=== PATIENT | female | born 1995 | race Caucasian/White ===

== ENCOUNTER → 2016-12-02 | Outpatient (CLI) | payer OTHER ==
[~2016-12-02] MED LIST: AMOXICILLIN500 M2 PO; AMOXICILLIN500 MG PO; ANAPROX DS550 MG PO; ANTIVERT/2525 MG PO; ATIVAN0.5 MG PO; ATIVAN1 MG PO; BACTRIM DS 8001 TA1 PO; BENADRYL ALLERG25 M5 PO; CIPRO250 MG PO; FIORICET 325 MG1 TAB PO; IBU-6600 MG PO; K-Dur 20MEQ20 MEQ PO; KEFLEX500 MG PO; LEVOFLOXACIN500 MG PO; LIDEX 0.05% CRE15 GM T; LOMOTIL 0.025 M1 TA1 PO; LOTRIMIN 1%15 GM PO; MACROBID100 M1 PO; MAXALT10 MG PO; MOTRIN400 MG; MOTRIN800 MG PO; NAPROSYN500 MG PO; PEPCID20 MG PO; TORADOL10 MG PO; VISTARIL25 M2 PO; ZOFRAN ODT4 MG SL; ZOFRAN4 MG PO; ZYRTEC ALLERGY10 MG PO; ZYRTEC10 MG; ZYRTEC10 MG PO
== END | disposition home or self-care (01) ==
LOC: LAB 18:40
DX: E01.0 Iodine-deficiency related diffuse (endemic) goiter (principal)

== ENCOUNTER → 2016-12-23 | Outpatient (CLI) | payer OTHER ==
[2016-12-23 20:53] LABS: FREE T4 1.05 ng/dl (0.76-1.46)
[2016-12-25 07:07] LABS: THYROID PEROXIDASE (TPO) AB 38 IU/mL (0-34)
== END | disposition home or self-care (01) ==
LOC: LAB 18:56
PROVIDERS: Nurse Practitioner
DX: E01.0 Iodine-deficiency related diffuse (endemic) goiter (principal)

== ENCOUNTER → 2016-12-30 | Outpatient (CLI) | payer OTHER | END | disposition home or self-care (01) | LOC: US 18:00 | DX: E04.2 Nontoxic multinodular goiter (principal); E01.0 Iodine-deficiency related diffuse (endemic) goiter; R59.0 Localized enlarged lymph nodes ==

== ENCOUNTER 2017-03-19 08:21 | Emergency (ER) | payer OTHER ==
[~2017-03-19] VITALS: Ht 157.4 cm; Wt 70.3 kg
[2017-03-19 08:59] LABS: BILIRUBIN NEGATIVE (NEGATIVE); BLOOD 3+ (NEGATIVE); CLARITY CLOUDY (CLEAR); COLOR YELLOW (YELLOW); GLUCOSE NEGATIVE (NEGATIVE); KETONE NEGATIVE (NEGATIVE); LEUKO ESTERASE 1+ (NEGATIVE); NITRITE NEGATIVE (NEGATIVE); PH 5.5 (5.0-9.0); PROTEIN TRACE (NEGATIVE); SPECIFIC GRAVITY >= 1.030 (1.005-1.030); UROBILINOGEN 0.2 E.U./dl (0.2-1.0)
[2017-03-19 09:05] LABS: BACTERIA 2+
[2017-03-19 09:06] LABS: URINE REFLEX COMMENT YES (NO)
[2017-03-19 09:21] LABS: BASO % 0.3 % (0.0-1.0); EOS % 0.1 % (1.0-4.0); HEMATOCRIT 36.6 % (37.0-47.0); HEMOGLOBIN 12.9 g/dl (12.0-16.0); IG # 0.1 10*3/uL (0.0-0.1); LYMPH # 1.1 10*3/uL (1.3-4.4); LYMPH % 7.3 % (27.0-41.0); MEAN CELL VOLUME 94.1 fl (81.0-99.0); MEAN CORPUSCULAR HGB 33.2 pg (27.0-31.0); MEAN CORPUSCULAR HGB CONC 35.2 g/dl (33.0-37.0); MEAN PLATELET VOLUME 10.4 fl (9.6-12.3); MONO % 6.3 % (3.0-9.0); NEUT # 13.1 10*3/uL (2.3-7.9); NEUT % 85.6 % (47.0-73.0); PLATELET COUNT AUTOMATED 241 10*3/uL (130-400); RED BLOOD COUNT 3.89 10*6/uL (4.10-5.10); RED CELL DISTRI WIDTH 11.9 % (0-14.5); WHITE BLOOD COUNT 15.3 10*3/uL (4.8-10.8)
[2017-03-19 09:42] LABS: ALBUMIN 3.8 gm/dl (3.1-4.5); ALKALINE PHOSPHATASE 89 U/L (45-117); BILIRUBIN, TOTAL 0.5 mg/dl (0.2-1.0); BUN 10 mg/dl (7-24); CARBON DIOXIDE 25 mmol/L (21-32); CHLORIDE 104 mmol/L (98-107); EST GLOM FILT AFRICAN AMERICAN > 60 ml/min; GLUCOSE 108 mg/dL (65-99); POTASSIUM 3.6 mmol/L (3.5-5.1); SGOT/AST 13 IU/L (3-35); SGPT/ALT 21 U/L (12-78); SODIUM 137 mmol/L (136-145); TOTAL PROTEIN 7.6 gm/dL (6.4-8.2)
[2017-03-19] MEDS ORDERED: OMNICEF300 MG PO (11:25)
== END 2017-03-19 11:57 | disposition home or self-care (01) ==
LOC: ED 08:21
PROVIDERS: Emergency Medicine; Nurse Practitioner Family
DX: N39.0 Urinary tract infection, site not specified (principal); J01.90 Acute sinusitis, unspecified; Z88.1 Allergy status to other antibiotic agents; Z88.2 Allergy status to sulfonamides; Z91.018 Allergy to other foods; Z91.040 Latex allergy status

== ENCOUNTER → 2017-04-07 | Outpatient (CLI) | payer OTHER ==
[~2017-04-07] MED LIST changes: +OMNICEF300 MG PO
== END | disposition home or self-care (01) ==
LOC: LAB 15:05
DX: E01.0 Iodine-deficiency related diffuse (endemic) goiter (principal)

== ENCOUNTER → 2017-04-18 | Outpatient (CLI) | payer OTHER | END | disposition home or self-care (01) | LOC: SDC 12:00 → EDSTATUS 12:30 | DX: E04.2 Nontoxic multinodular goiter (principal) ==

== ENCOUNTER 2019-09-15 00:38 | Emergency (ER) | payer OTHER ==
[~2019-09-15] VITALS: Ht 154.9 cm; Wt 68.0 kg
[2019-09-15 01:40] LABS: BILIRUBIN NEGATIVE (NEGATIVE); BLOOD 2+ (NEGATIVE); CLARITY SL CLOUDY (CLEAR); COLOR YELLOW (YELLOW); GLUCOSE NEGATIVE (NEGATIVE); KETONE NEGATIVE (NEGATIVE); LEUKO ESTERASE TRACE (NEGATIVE); NITRITE NEGATIVE (NEGATIVE); SPECIFIC GRAVITY 1.025 (1.005-1.030); UROBILINOGEN 0.2 E.U./dl (0.2-1.0)
[2019-09-15 01:41] LABS: BACTERIA TRACE; EPITHELIAL CELLS 15-20
[2019-09-15] MEDS ORDERED: PYRIDIUM100 MG PO (01:45)
[2019-09-15] MEDS ORDERED: CEPHALEXIN500 M1 PO (01:45)
== END 2019-09-15 02:00 | disposition home or self-care (01) ==
LOC: ED 00:38
PROVIDERS: Nurse Practitioner Family
DX: N39.0 Urinary tract infection, site not specified (principal); G43.909 Migraine, unspecified, not intractable, without status migrainosus; Z88.2 Allergy status to sulfonamides; Z91.048 Other nonmedicinal substance allergy status; Z91.040 Latex allergy status; Z88.1 Allergy status to other antibiotic agents; Z88.8 Allergy status to other drugs, medicaments and biological substances; Z79.2 Long term (current) use of antibiotics; Z79.899 Other long term (current) drug therapy

== ENCOUNTER 2019-11-27 14:01 | Emergency (ER) | payer OTHER ==
[~2019-11-27] VITALS: Ht 154.9 cm; Wt 68.0 kg
[~2019-11-27 14:01] MED LIST changes: +CEPHALEXIN500 M1 PO; +PYRIDIUM100 MG PO
[2019-11-27] MEDS ORDERED: DIFLUCAN150 MG PO (15:07)
[2019-11-27] MEDS ORDERED: AMOXICILLIN500 M2 PO (15:07)
== END 2019-11-27 15:14 | disposition home or self-care (01) ==
LOC: ED 14:01
DX: J02.9 Acute pharyngitis, unspecified (principal); J40 Bronchitis, not specified as acute or chronic; F17.200 Nicotine dependence, unspecified, uncomplicated; Z79.899 Other long term (current) drug therapy; Z88.8 Allergy status to other drugs, medicaments and biological substances; Z88.2 Allergy status to sulfonamides

== ENCOUNTER 2020-07-29 22:59 | Emergency (ER) | payer OTHER ==
[~2020-07-29 22:59] MED LIST changes: +DIFLUCAN150 MG PO
[2020-07-29] MEDS ORDERED: DOXYLAMINE-PYR1 EACH PO (23:06)
[2020-07-29 23:24] LABS: BASO % 0.3 % (0.0-1.0); EOS # 0.1 10*3/uL (0.0-0.4); EOS % 0.8 % (1.0-4.0); HEMATOCRIT 34.4 % (37.0-47.0); LYMPH # 2.5 10*3/uL (1.3-4.4); LYMPH % 20.5 % (27.0-41.0); MEAN CELL VOLUME 93.7 fl (81.0-99.0); MEAN CORPUSCULAR HGB 32.7 pg (27.0-31.0); MEAN CORPUSCULAR HGB CONC 34.9 g/dl (33.0-37.0); MEAN PLATELET VOLUME 10.4 fl (9.6-12.3); MONO # 0.7 10*3/uL (0.1-1.0); MONO % 5.4 % (3.0-9.0); NEUT # 8.7 10*3/uL (2.3-7.9); NEUT % 72.7 % (47.0-73.0); PLATELET COUNT AUTOMATED 285 10*3/uL (130-400); RED BLOOD COUNT 3.67 10*6/uL (4.10-5.10); RED CELL DISTRI WIDTH 12.2 % (0-14.5)
[2020-07-29 23:37] LABS: BILIRUBIN Negative (Negative); BLOOD 1+ (Negative); CLARITY Clear (Clear); COLOR Yellow (Yellow); GLUCOSE Negative (Negative); KETONE Trace (Negative); LEUKO ESTERASE Trace (Negative); NITRITE Negative (Negative); SPECIFIC GRAVITY >= 1.030 (1.001-1.030)
[2020-07-29 23:43] LABS: ALBUMIN 3.4 gm/dl (3.1-4.5); ALKALINE PHOSPHATASE 64 U/L (45-117); BUN 7 mg/dl (7-24); CHLORIDE 108 mmol/L (98-107); CREATININE 0.62 mg/dL (0.55-1.02); POTASSIUM 3.3 mmol/L (3.5-5.1); SGOT/AST 10 IU/L (3-35); SGPT/ALT 15 U/L (12-78); SODIUM 139 mmol/L (136-145); TOTAL PROTEIN 7.4 gm/dL (6.4-8.2)
[2020-07-29 23:53] LABS: BACTERIA 1+; EPITHELIAL CELLS 21-30; MUCOUS 2+
[2020-07-30] MEDS ORDERED: PHENERGAN25 M3 PO (00:56)
[2020-07-30] MEDS ORDERED: KEFLEX500 M1 PO (00:56)
== END 2020-07-30 01:37 | disposition home or self-care (01) ==
LOC: ED 22:59
PROVIDERS: Nurse Practitioner
DX: O26.891 Other specified pregnancy related conditions, first trimester (principal); O21.9 Vomiting of pregnancy, unspecified; E86.0 Dehydration; Z88.2 Allergy status to sulfonamides; Z91.040 Latex allergy status; Z79.899 Other long term (current) drug therapy; Z3A.12 12 weeks gestation of pregnancy

== ENCOUNTER 2021-06-14 22:00 | Emergency (ER) | payer OTHER ==
[~2021-06-14 22:00] MED LIST changes: +DOXYLAMINE-PYR1 EACH PO; +KEFLEX500 M1 PO; +PHENERGAN25 M3 PO
[2021-06-14] MEDS ORDERED: FEROSUL325 M1 PO (22:24)
[2021-06-14] MEDS ORDERED: NORETHINDRONE0.35 M1 PO (22:24)
[2021-06-14] MEDS ORDERED: Lopressor25 MG PO (22:24)
[2021-06-14] MEDS ORDERED: FLONASE ALLERG9.9 ML NAS (22:26)
[2021-06-14] MEDS ORDERED: EPIPEN 2-P0.3 MG/0.3 IJ (22:26)
== END 2021-06-14 22:59 | disposition home or self-care (01) ==
LOC: ED 22:00
DX: R07.89 Other chest pain (principal); R06.00 Dyspnea, unspecified; Z91.018 Allergy to other foods; Z88.1 Allergy status to other antibiotic agents; Z88.2 Allergy status to sulfonamides; Z88.8 Allergy status to other drugs, medicaments and biological substances; Z79.899 Other long term (current) drug therapy

== ENCOUNTER 2021-07-10 19:58 | Emergency (ER) | payer OTHER ==
[~2021-07-10] VITALS: Ht 154.9 cm; Wt 72.6 kg
[~2021-07-10 19:58] MED LIST changes: +EPIPEN 2-P0.3 MG/0.3 IJ; +FEROSUL325 M1 PO; +FLONASE ALLERG9.9 ML NAS; +Lopressor25 MG PO; +NORETHINDRONE0.35 M1 PO
[2021-07-10] MEDS ORDERED: FLUOXETINE HYDR20 M1 PO (20:03)
== END 2021-07-10 20:45 | disposition home or self-care (01) ==
LOC: ED 19:58
DX: K64.4 Residual hemorrhoidal skin tags (principal); Z88.2 Allergy status to sulfonamides; Z91.040 Latex allergy status; Z88.8 Allergy status to other drugs, medicaments and biological substances; Z79.899 Other long term (current) drug therapy

== ENCOUNTER 2021-09-17 16:50 | Emergency (ER) | payer OTHER ==
[~2021-09-17] VITALS: Ht 154.9 cm; Wt 68.0 kg
[~2021-09-17 16:50] MED LIST changes: +FLUOXETINE HYDR20 M1 PO
[2021-09-17] MEDS ORDERED: VIBRAMYCIN100 MG PO (18:21)
[2021-09-17] MEDS ORDERED: IBUPROFEN600 MG PO (18:21)
== END 2021-09-17 18:28 | disposition home or self-care (01) ==
LOC: ED 16:50
DX: J34.0 Abscess, furuncle and carbuncle of nose (principal); Z88.1 Allergy status to other antibiotic agents; Z88.2 Allergy status to sulfonamides; Z91.040 Latex allergy status; Z88.8 Allergy status to other drugs, medicaments and biological substances; Z91.018 Allergy to other foods; Z79.899 Other long term (current) drug therapy

== ENCOUNTER → 2022-02-11 | Outpatient (CLI) | payer OTHER ==
[~2022-02-11] MED LIST changes: +IBUPROFEN600 MG PO; +VIBRAMYCIN100 MG PO
== END | disposition home or self-care (01) ==
LOC: US 00:09
PROVIDERS: ATTEND Nurse Practitioner Family
DX: E04.2 Nontoxic multinodular goiter (principal)

== ENCOUNTER 2022-11-06 02:38 | Emergency (ER) | payer OTHER ==
[~2022-11-06] VITALS: Ht 154.9 cm; Wt 62.1 kg
[2022-11-06] MEDS ORDERED: PROMETHAZINE25 M1 PO (04:05)
== END 2022-11-06 04:15 | disposition home or self-care (01) ==
LOC: ED 02:38
DX: O21.9 Vomiting of pregnancy, unspecified (principal); O26.891 Other specified pregnancy related conditions, first trimester; Z3A.09 9 weeks gestation of pregnancy; K59.00 Constipation, unspecified; F41.9 Anxiety disorder, unspecified; G43.909 Migraine, unspecified, not intractable, without status migrainosus; Z88.2 Allergy status to sulfonamides; Z91.018 Allergy to other foods; Z91.040 Latex allergy status; Z88.1 Allergy status to other antibiotic agents; Z88.8 Allergy status to other drugs, medicaments and biological substances

== ENCOUNTER 2023-09-24 20:39 | Emergency (ER) | payer OTHER ==
[~2023-09-24] VITALS: Ht 154.9 cm; Wt 68.0 kg
[~2023-09-24 20:39] MED LIST changes: +PROMETHAZINE25 M1 PO
[2023-09-24] MEDS ORDERED: SODIUM CHLORIDE 0.9% 1,000 ML IV ONE (21:10)
[2023-09-24] MEDS ORDERED: Ondansetron Hydrochloride 4 MG/2 ML VIAL IV ONE (21:10)
[2023-09-24 21:21] LABS: BASO % 0.5 % (0.0-1.0); EOS # 0.1 10*3/uL (0.0-0.4); HEMATOCRIT 40.8 % (37.0-47.0); LYMPH # 0.7 10*3/uL (1.3-4.4); LYMPH % 11.1 % (27.0-41.0); MEAN CELL VOLUME 95.8 fl (81.0-99.0); MEAN CORPUSCULAR HGB 32.2 pg (27.0-31.0); MEAN CORPUSCULAR HGB CONC 33.6 g/dl (33.0-37.0); MEAN PLATELET VOLUME 10.2 fl (9.6-12.3); MONO # 0.3 10*3/uL (0.1-1.0); MONO % 4.1 % (3.0-9.0); NEUT # 5.1 10*3/uL (2.3-7.9); NEUT % 83.1 % (47.0-73.0); PLATELET COUNT AUTOMATED 210 10*3/uL (130-400); RED BLOOD COUNT 4.26 10*6/uL (4.10-5.10); RED CELL DISTRI WIDTH 12.1 % (0-14.5); WHITE BLOOD COUNT 6.1 10*3/uL (4.8-10.8)
[2023-09-24 21:30] LABS: BILIRUBIN Negative (Negative); BLOOD 3+ (Negative); CLARITY Cloudy (Clear); COLOR Yellow (Yellow); GLUCOSE Negative (Negative); KETONE Trace (Negative); LEUKO ESTERASE 1+ (Negative); NITRITE Negative (Negative); PH 5.5 (4.5-8.0); SPECIFIC GRAVITY 1.025 (1.001-1.030); UROBILINOGEN 0.2 E.U./dl (0.0-1.0)
[2023-09-24 21:35] LABS: BACTERIA 2+; RBC TNTC rbc/hpf (0-2)
[2023-09-24 22:15] LABS: ALKALINE PHOSPHATASE 72 U/L (46-116); BUN 10 mg/dl (9-23); CHLORIDE 110 mmol/L (98-107); POTASSIUM 3.6 mmol/L (3.4-5.1); SGPT/ALT 117 U/L (5-49); TOTAL PROTEIN 6.9 gm/dL (6.0-8.0)
[2023-09-24] MEDS ORDERED: IOHEXOL 300 MG/ML 100 ML VIAL IV ONE (22:35)
[2023-09-25] MEDS ORDERED: ONDANSETRON4 MG SL (00:20)
[2023-09-25] MEDS ORDERED: CEPHALEXIN500 M1 PO (00:20)
[2023-09-25] MEDS ORDERED: FLUONAZOLE150 M1 PO (00:22)
== END 2023-09-25 01:02 | disposition home or self-care (01) ==
LOC: ED 20:39
PROVIDERS: Physician Assistant Medical
DX: N39.0 Urinary tract infection, site not specified (principal); Z20.822 Contact with and (suspected) exposure to COVID-19; R11.2 Nausea with vomiting, unspecified; R42 Dizziness and giddiness; R19.7 Diarrhea, unspecified; M54.9 Dorsalgia, unspecified; R51.9 Headache, unspecified; Z88.2 Allergy status to sulfonamides; Z91.018 Allergy to other foods; Z91.040 Latex allergy status; Z88.1 Allergy status to other antibiotic agents; Z88.8 Allergy status to other drugs, medicaments and biological substances; Z79.899 Other long term (current) drug therapy

== ENCOUNTER 2023-12-30 23:12 | Emergency (ER) | payer OTHER ==
[~2023-12-30] VITALS: Ht 154.9 cm; Wt 56.7 kg
[~2023-12-30 23:12] MED LIST changes: +FLUONAZOLE150 M1 PO; +ONDANSETRON4 MG SL
[2023-12-30] MEDS ORDERED: Lopressor25 MG PO (23:46)
[2024-01-01 11:06] LABS: HEPATITIS B SURFACE AB Reactive (.); HEPATITIS B SURFACE AG Negative (Negative)
== END 2023-12-31 01:20 | disposition home or self-care (01) ==
LOC: ED 23:12
PROVIDERS: Internal Medicine
DX: Z77.21 Contact with and (suspected) exposure to potentially hazardous body fluids (principal); Z88.2 Allergy status to sulfonamides; Z91.040 Latex allergy status; Z88.8 Allergy status to other drugs, medicaments and biological substances; Z91.018 Allergy to other foods; Z79.2 Long term (current) use of antibiotics; Z79.899 Other long term (current) drug therapy

== ENCOUNTER 2025-02-02 11:45 | Emergency (ER) | payer OTHER ==
[~2025-02-02] VITALS: Ht 154.9 cm; Wt 57.6 kg
[2025-02-02] MEDS ORDERED: FAMOTIDINE 50 ML IV ONE (11:50)
[2025-02-02] MEDS ORDERED: diphenhydrAMINE hydrochloride 50 MG/ML VIAL IV ONE (12:20)
[2025-02-02] MEDS ORDERED: EPIPEN 2-P0.3 MG/0.3 IJ (12:27)
== END 2025-02-02 12:34 | disposition home or self-care (01) ==
LOC: ED 11:45
DX: T78.1XXA Other adverse food reactions, not elsewhere classified, initial encounter (principal); R21 Rash and other nonspecific skin eruption; Z91.018 Allergy to other foods; Z88.2 Allergy status to sulfonamides; Z91.040 Latex allergy status; Z88.1 Allergy status to other antibiotic agents; Z88.8 Allergy status to other drugs, medicaments and biological substances; Z79.2 Long term (current) use of antibiotics; Z79.899 Other long term (current) drug therapy; X58.XXXA Exposure to other specified factors, initial encounter

== ENCOUNTER 2025-03-03 19:57 | Emergency (ER) | payer OTHER | END 2025-03-03 21:11 | disposition home or self-care (01) | LOC: ED 19:57 | PROVIDERS: Nurse Practitioner Family | DX: Z77.21 Contact with and (suspected) exposure to potentially hazardous body fluids (principal); F10.90 Alcohol use, unspecified, uncomplicated; Y90.9 Presence of alcohol in blood, level not specified ==